=== PATIENT | female | born 1970 | race Caucasian/White ===

== ENCOUNTER 2018-11-01 05:24 | Day surgery (SDC) | payer OTHER ==
[~2018-11-01] VITALS: Ht 154.9 cm; Wt 87.1 kg
--- NOTE | ~2018-11-01 | O ---
[facility] [place] [address] OPERATIVE REPORT Name: MARY GARIBAY Room #: 150-1 [facility] M.R.#: [id number] Admission: 11/01/18 ������������������ Attend Phys: Hernando Blum MD Discharge: ������������������ Date of : 66 Report #: [id number] THIS REPORT FOR: //name// CC: Richard Blum DATE OF SERVICE: 11/01/2018 PREOPERATIVE DIAGNOSIS: Right knee medial meniscus tear. POSTOPERATIVE DIAGNOSES: 1. Right knee medial meniscus tear. 2. Thickened medial plica. PROCEDURES: 1. Right knee arthroscopy with partial medial meniscectomy. 2. Medial plica excision. SURGEON: Hernando Blum M.D. SLIP COVER CUTTER: Mora Gill PA-C. ANESTHESIA: LMA. TOURNIQUET TIME: 18 minutes. COMPLICATIONS: None. SPECIMENS: None. CONDITION UPON LEAVING THE OPERATING ROOM: Stable. INDICATIONS FOR PROCEDURE: The patient is a 48-year-old female with medial-sided right knee pain. She had an MRI scan showing to have a tear of her medial meniscus. After discussion with her, she elected for right knee arthroscopy with partial medial meniscectomy and debridement as needed. DESCRIPTION OF PROCEDURE: Risks, benefits, alternatives and complications were discussed in detail with the patient including, but not limited to risk of anesthesia; risk of damage to nerves, arteries or blood vessels; risk for infection or bleeding; risk for continued knee pain and need for reoperation. Informed consent was obtained from the patient. Right knee was appropriately marked in the preoperative holding area. IV Ancef was given for preoperative antibiotics. She was brought to the operating room and placed in supine position on the [address] [address] OPERATIVE REPORT Name: MARY GARIBAY BENJY Room #: 150-1 [facility] M.R.#: [id number] Admission: 11/01/18 ������������������ Attend Phys: Hernando Blum MD Discharge: ������������������ Date of : 66 Report #: [id number] operating room table. LMA anesthesia was induced without complication. Tourniquet was placed on the right thigh. Right lower extremity was prepped and draped in normal sterile fashion. IV Levaquin was given for preoperative antibiotics. Timeout was performed properly identifying the patient and procedure as well as the instrumentation. All in the operating room were in agreement. The right lower extremity was exsanguinated, tourniquet was inflated. Tourniquet time was 18 minutes. Standard anterolateral portal was established with an 11 blade through the skin. Arthroscope was introduced into the patellofemoral compartment and diagnostic arthroscopy was undertaken. 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 Medial gutter was visualized and found to have a thickened medial plica. Medial compartment was visualized and medial portal was established under arthroscopic visualization. Probe was introduced in the medial compartment. There was noted to be a horizontal type tear of the posterior horn of the medial meniscus. This was trimmed back to a stable rim with an arthroscopic biter and smoothed back with a shaver. Notch was visualized and found to have an intact anterior cruciate ligament. Lateral compartment was visualized and found to have an intact lateral meniscus. Scope was placed back in the patellofemoral compartment and the medial plica was excised with an oscillating shaver. After this, all fluid was allowed to drain from the knee. Knee was injected with 10 mL of 0.5% Marcaine. Incision was closed with 3-0 nylon. Soft dressing of Adaptic, 4 x 4, Webril and Rodri wrap were applied. The patient tolerated this procedure well and went to recovery room under the care of Anesthesia postoperatively. ��������������������������������������������� ���������������������������������������� By: ��������������������������������������������� 1246 [id number] Hernando Blum MD /nt
[~2018-11-01 05:24] MED LIST: ASPIR 8181 MG PO; KAPSPARGO SPRIN50 MG PO; PERCOCET 7.5-31 EACH PO; PLAVIX 75 MG TA75 M1 PO; PROTONIX40 M2 PO; TYLENOL EXTRA500 MG PO
[2018-11-01 13:00] VITALS: BP 145/92
[2018-11-01 13:02] VITALS: BP 145/92
== END 2018-11-01 14:33 | disposition home or self-care (01) ==
LOC: OR 05:24 → TBA 05:24 → OR 11:27
DX: M23.221 Derangement of posterior horn of medial meniscus due to old tear or injury, right knee (principal); M67.51 Plica syndrome, right knee; M22.41 Chondromalacia patellae, right knee; Z68.36 Body mass index [BMI] 36.0-36.9, adult; I21.3 ST elevation (STEMI) myocardial infarction of unspecified site; Z95.5 Presence of coronary angioplasty implant and graft; K21.9 Gastro-esophageal reflux disease without esophagitis; J45.909 Unspecified asthma, uncomplicated; I50.9 Heart failure, unspecified; Z98.890 Other specified postprocedural states; Z90.710 Acquired absence of both cervix and uterus; M81.0 Age-related osteoporosis without current pathological fracture; G35 Multiple sclerosis
CPT/HCPCS: 50010; 50101; 50405; 51038; 54170; 56526; 57103; 57180; 62110; 62900; 70005

== ENCOUNTER 2019-01-07 05:30 | Day surgery (SDC) | payer OTHER ==
[~2019-01-07] VITALS: Ht 154.9 cm; Wt 89.8 kg
[~2019-01-07 05:30] MED LIST changes: +NITROGLYCERIN0.4 MG SUBLING; +PENNSAID2 GM TOP; +PRALUENT P75 MG/1 ML SUBQ
[2019-01-07 08:09] VITALS: BP 153/89
[2019-01-07] MEDS ORDERED: NORCO 5-325 TA1 EAC1 PO (08:15)
[2019-01-07 08:42] VITALS: BP 153/89
--- NOTE | 2019-01-09 12:52 | O ---
[facility] [place] [address] OPERATIVE REPORT Name: LANIMARY BENJY Room #: [facility] MHuan#: [id number] Admission: 01/07/19 ������������������ Attend Phys: Hernando Blum MD Discharge: 01/07/19 ������������������ Date of : 66 Report #: [id number] THIS REPORT FOR: //name// CC: Richard Blum DATE OF SERVICE: 01/07/2019 PREOPERATIVE DIAGNOSIS: Right knee internal derangement. POSTOPERATIVE DIAGNOSES: 1. Right knee medial scar tissue. 2. 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 3. Posterior horn medial meniscus tear. PROCEDURE: 1. Diagnostic right knee arthroscopy with limited synovectomy. 2. Partial medial meniscectomy. 3. Chondroplasty of medial femoral condyle. SURGEON: Hernando Blum MD PETROLEUM REFINERY WORKER: None. ANESTHESIA: LMA. TOURNIQUET TIME: 16 minutes. COMPLICATIONS: None. SPECIMENS: None. CONDITION UPON LEAVING THE OPERATING ROOM: Stable. INDICATIONS FOR PROCEDURE: The patient is a 48-year-old female, who is about two months or so out from a right knee scope for medial meniscectomy. She fell in her postoperative period and has had continued pain and mechanical symptoms in her knee. She had a repeat MRI scan, did not show any significant re-tear of her meniscus; however, she had failed conservative treatment for this and after discussion with her, she elected for diagnostic arthroscopy. DESCRIPTION OF PROCEDURE: Risks, benefits, alternatives and complications were discussed in detail with the patient including but not limited to risk of anesthesia; risk of damage to nerves, arteries, blood vessels; risk for infection and bleeding; risk for continued knee pain, need for reoperation. Informed consent was obtained from the patient. Right knee was appropriately [address] [address] OPERATIVE REPORT Name: MARY GARIBAY BENJY Room #: DEP [facility] Jose Maria#: [id number] Admission: 01/07/19 ������������������ Attend Phys: Hernando Blum MD Discharge: 01/07/19 ������������������ Date of : 66 Report #: [id number] marked in the preoperative holding area. IV Ancef was given for preoperative antibiotic. She was brought to the operating room and placed in the supine position on the operating room table. LMA anesthesia was induced without complication. Tourniquet was placed on the right thigh. Right lower extremity was prepped and draped in normal sterile fashion. Timeout was performed properly identifying the patient and procedure as well as instrumentation and all in the operating room were in agreement. Right lower extremity was exsanguinated, tourniquet was inflated. Tourniquet time was 16 minutes. Standard anterolateral portal was established with an 11 blade through the skin. Arthroscope was introduced into the patellofemoral compartment, diagnostic arthroscopy was undertaken. Patellofemoral compartment was visualized and found to have grade 2 chondromalacia of the apex of the patella. Medial gutter was visualized and found to be without pathology. Medial compartment was visualized and medial portal was established under arthroscopic visualization. Probe was introduced in the medial compartment and there was noted to be a small undersurface tear of the posterior horn of medial meniscus. This was trimmed back with arthroscopic biter and smoothed back with a shaver. In addition, there was grade 3 chondromalacia of the medial femoral condyle with a few unstable cartilaginous flaps and this was smoothed back with an oscillating shaver. After this, notch was visualized and found to have an intact ACL. Lateral compartment was visualized and found to have an intact lateral meniscus. Scope was then placed back in the patellofemoral compartment and there was noted to be a large piece of adherent scar tissue to the medial capsule that was evidently impinging between the patella and the trochlear groove. This was removed with an oscillating shaver. After this, all fluid was allowed to drain from the knee. Knee was injected with 10 mL of 0.5% Marcaine. Incision was closed with 3-0 nylon. Soft dressing of Adaptic, 4 x 4, Webril, and Rodri wrap were applied. The patient tolerated this procedure well and went to the recovery room under the care of anesthesia postoperatively. ��������������������������������������������� <ELECTRONICALLY SIGNED> ���������������������������������������� By: Hernando Blum MD ��������������������������������������������� 01/09/19 1252 [id number] [id number] Hernando Blum MD /nt
== END 2019-01-07 10:10 | disposition home or self-care (01) ==
LOC: TBA 05:30 → OR 05:30
DX: M23.321 Other meniscus derangements, posterior horn of medial meniscus, right knee (principal); M94.261 Chondromalacia, right knee; M23.8X1 Other internal derangements of right knee; J45.909 Unspecified asthma, uncomplicated; E78.5 Hyperlipidemia, unspecified; K21.9 Gastro-esophageal reflux disease without esophagitis; M81.0 Age-related osteoporosis without current pathological fracture; I25.2 Old myocardial infarction; I50.9 Heart failure, unspecified; G35 Multiple sclerosis; Z88.0 Allergy status to penicillin; Z88.8 Allergy status to other drugs, medicaments and biological substances; Z79.899 Other long term (current) drug therapy; Z79.82 Long term (current) use of aspirin; Z95.5 Presence of coronary angioplasty implant and graft; Z90.710 Acquired absence of both cervix and uterus; Z98.890 Other specified postprocedural states
CPT/HCPCS: 50010; 50101; 50405; 51038; 54170; 56526; 57103; 57180; 62110; 62900; 70005

== ENCOUNTER 2019-08-25 11:03 | Emergency (ER) | payer OTHER ==
[~2019-08-25] VITALS: Ht 154.9 cm; Wt 89.8 kg
[~2019-08-25 11:03] MED LIST changes: +NORCO 5-325 TA1 EAC1 PO
[2019-08-25 13:33] LABS: ABSOLUTE NEUTROPHILS 10.8 thou/uL (1.4-8.2); BASOPHILS 0.5 % (0.0-2.0); EOSINOPHILS 0.2 % (0.0-3.0); HEMOGLOBIN 13.2 gm/dL (12.0-15.0); LYMPHOCYTES 10.4 % (24.0-44.0); MCH 28.6 pg (26.0-34.0); MCHC 32.3 g/dL (28.0-37.0); MCV 88.5 fL (80.0-100.0); MONOCYTES 5.9 % (1.0-8.0); PLATELET COUNT 285 thou/uL (150-400); RBC 4.63 mil/uL (4.20-5.00); RDW 15.5 % (10.5-14.5)
[2019-08-25 13:44] LABS: ANION GAP 12 mmol/L (7-16); BUN 15 mg/dL (7-18); CALCIUM 8.5 mg/dL (8.5-10.1); CHLORIDE 102 mmol/L (98-107); CO2 23 mmol/L (21-32); CREATININE 0.7 mg/dL (0.6-1.0); GLUCOSE 120 mg/dL (74-106); POTASSIUM 3.8 mmol/L (3.5-5.1); SODIUM 137 mmol/L (136-145)
[2019-08-25 13:54] LABS: TROPONIN-I <0.06 ng/mL (<0.06)
[2019-08-25] MEDS ORDERED: PREDNISONE 20 M20 MG PO (15:41)
[2019-08-25] MEDS ORDERED: NORCO 5-325 TA1 EAC1 PO (15:41)
[2019-08-25] MEDS ORDERED: ZYRTEC10 M2 PO (15:41)
[2019-08-25] MEDS ORDERED: HYDROXYZINE PAM25 M1 PO (15:41)
[2019-08-25 16:57] VITALS: BP 110/68
--- NOTE | 2019-08-28 12:33 | EKG ---
[facility] [place] [address] ELECTROCARDIOGRAM REPORT Name: MARY GARIBAY Room #: DEP JoseM aria#: [id number] Admission: 08/25/19 Attend Phys: Discharge: 08/25/19 Date of : 66 Report #: [id number] THIS REPORT FOR: cc: Richard Garnica,Sid Gorman MD [facility] ~ THIS REPORT FOR: //name// [facility] ED Test Date: 2019-08-25 Test Time: 11:42:58 Pat Name: MARY GARIBAY Department: Room: Gender: F [employer] Technology Instructor: [facility] : 1970 Requested By: Starla Barry Order Number: [id number] MD: Sid Sierra Measurements Intervals [place] Rate: 97 P: 10 KS: 137 QRS: -3 QRSD: 89 T: 66 QT: 354 QTc: 450 Interpretive Statements Sinus rhythm Abnormal R-wave progression, early transition Nonspecific T abnormalities, anterior leads Compared to ECG 02/03/2003 20:33:51 T-wave abnormality now present Sinus tachycardia no longer present Electronically Signed On 08-26-2019 9:32:50 PRODUCTION WORKER by Sid Sierra [email or web address] <ELECTRONICALLY SIGNED> By: Sid Sierra MD, [facility] 08/26/19 0932 1142 1142 Sid Sierra MD, FAC /EPI
== END 2019-08-25 17:39 | disposition home or self-care (01) ==
LOC: ER 11:03
PROVIDERS: Nurse Practitioner Family
DX: H65.92 Unspecified nonsuppurative otitis media, left ear (principal); J32.9 Chronic sinusitis, unspecified; T36.95XA Adverse effect of unspecified systemic antibiotic, initial encounter; F41.9 Anxiety disorder, unspecified; R42 Dizziness and giddiness; I11.0 Hypertensive heart disease with heart failure; I50.9 Heart failure, unspecified; E78.5 Hyperlipidemia, unspecified; J45.909 Unspecified asthma, uncomplicated; K21.9 Gastro-esophageal reflux disease without esophagitis; M81.0 Age-related osteoporosis without current pathological fracture; Z90.710 Acquired absence of both cervix and uterus; Z95.5 Presence of coronary angioplasty implant and graft; Z91.030 Bee allergy status; Z88.0 Allergy status to penicillin; Z88.1 Allergy status to other antibiotic agents; Z88.8 Allergy status to other drugs, medicaments and biological substances; Y92.89 Other specified places as the place of occurrence of the external cause